=== PATIENT | male | born 1955 | race African-American/Black ===

== ENCOUNTER 2016-05-15 09:39 | Inpatient (IN) | payer MEDICAID, MEDICARE, OTHER ==
[2016-05-15] VITALS (16 sets, daily range): BP systolic 121–222; BP diastolic 61–136; PULSE 62–108; RESP 18–20; TEMP 97.6–98; O2SAT 94–97
[~2016-05-15] VITALS: Ht 170.2 cm; Wt 104.7 kg
[~2016-05-15 09:39] MED LIST: ALLO100T PO; AMLO10TA2 PO; COLC1CAP3 PO; HYDR-3516 PO; LISI40TA PO; PRED10 PO
--- NOTE | 2016-05-15 09:56 | PD ---
Physical Exam Date Seen by Provider: May 15, 2016 Time Seen by Provider: 09:51 Narrative Pt is a 61 year old male presenting to the ED for medication refill. Pt has HTN and does not have a PCP. Pt states he is SOB since this morning. He denies any tobacco use. Pt also reports a cough. He denies any chest pain. Pt appears well. Data Data Last Documented VS Vital Signs Date Time Temp Pulse Resp B/P Pulse Ox O2 Delivery O2 Flow Rate FiO2 05/15/16 17:00 70 18 140/67 96 Room Air 05/15/16 09:57 98.0 Orders Lisinopril (Prinivil) (05/15/16 12:15) Amlodipine (Norvasc) (05/15/16 12:15) Metoprolol Tartrate (Lopressor) (05/15/16 13:45) Nicardipine Inj (Cardene Inj) (05/15/16 16:00) Electrocardiogram (05/15/16 15:48) Basic Metabolic Panel (Bmp) (05/15/16 15:48) Ckmb (Isoenzyme) Profile (05/15/16 15:48) Complete Blood Count With Diff (05/15/16 15:48) Magnesium (Mg) (05/15/16 15:48) Prothrombin Time / Inr (Pt) (05/15/16 15:48) Act Partial Throm Time (Ptt) (05/15/16 15:48) Troponin I (05/15/16 15:48) Chest, Single Ap (05/15/16 15:48) Ecg Monitoring (05/15/16 15:48) Bilateral Bp Monitoring (05/15/16 15:48) Iv Access Insert/Monitor (05/15/16 15:48) Oxygen Administration (05/15/16 15:48) Sodium Chloride 0.9% Flush (Ns Flush) (05/15/16 16:00) Oximetry (05/15/16 15:48) CKMB (05/15/16 15:57) CKMB% (05/15/16 15:57) Admit To Inpatient (05/15/16 ) Vital Signs (Adult) Q4H (05/15/16 16:49) Vital Signs (Adult) Q1H (05/15/16 16:49) Activity Bed Rest With Brp (05/15/16 16:49) Telecom Network Manager / Telemetry YANDY.Q8H (05/15/16 16:49) Intake + Output YANDY.QSHIFT (05/15/16 16:49) Diet Heart Healthy (05/15/16 Dinner) Sodium Chloride 0.9% Flush (Ns Flush) (05/15/16 17:00) Sodium Chloride 0.9% Flush (Ns Flush) (05/15/16 21:00) Labetalol Inj (Trandate Inj) (05/15/16 17:00) Hydralazine Inj (Apresoline Inj) (05/15/16 17:00) Basic Metabolic Panel (Bmp) (05/16/16 06:00) Complete Blood Count With Diff (05/16/16 06:00) Resp Oxygen Tyler C Titrat 1-4 L (05/15/16 ) Inpatient Certification (05/15/16 ) Amlodipine (Norvasc) (05/16/16 09:00) Lisinopril (Prinivil) (05/16/16 09:00) Admit Order (Ed Use Only) (05/15/16 17:00) Labs Laboratory Tests Test 05/15/16 15:57 White Blood Count 9.0 TH/MM3 Red Blood Count 4.77 MIL/MM3 Hemoglobin 13.3 GM/DL Hematocrit 38.8 % Mean Corpuscular Volume 81.3 FL Mean Corpuscular Hemoglobin 28.0 PG Mean Corpuscular Hemoglobin 34.4 % Concent Red Cell Distribution Width 17.1 % Platelet Count 334 TH/MM3 Mean Platelet Volume 7.2 FL Neutrophils (%) (Auto) 61.2 % Lymphocytes (%) (Auto) 28.4 % Monocytes (%) (Auto) 8.0 % Eosinophils (%) (Auto) 1.6 % Basophils (%) (Auto) 0.8 % Neutrophils # (Auto) 5.5 TH/MM3 Lymphocytes # (Auto) 2.6 TH/MM3 Monocytes # (Auto) 0.7 TH/MM3 Eosinophils # (Auto) 0.1 TH/MM3 Basophils # (Auto) 0.1 TH/MM3 CBC Comment DIFF FINAL Differential Comment Prothrombin Time 10.8 SEC Prothromb Time International 1.0 RATIO Ratio Activated Partial 26.0 SEC Thromboplast Time Sodium Level 139 MEQ/L Potassium Level 3.4 MEQ/L Chloride Level 104 MEQ/L Carbon Dioxide Level 27.4 MEQ/L Anion Gap 8 MEQ/L Blood Urea Nitrogen 12 MG/DL Creatinine 1.16 MG/DL Estimat Glomerular Filtration 78 ML/MIN Rate Random Glucose 88 MG/DL Calcium Level 9.1 MG/DL Magnesium Level 2.1 MG/DL Total Creatine Kinase 280 U/L Creatine Kinase MB 1.3 NG/ML Troponin I LESS THAN 0.02 NG/ML MDM Supervised Visit with ASHLEY: No Scripts Amlodipine 10 Mg Tab10 Mg PO DAILY #30 TAB Ref 0 Prov:Mcihelle Lee MD 05/15/16 Lisinopril 40 Mg Tab40 Mg PO DAILY #30 TAB Ref 0 Prov:Michelle Lee MD 05/15/16 Val Parikh May 15, 2016 09:56
[2016-05-15] MEDS ORDERED: LISINOPRIL 20 MG TAB PO ONE (12:15)
[2016-05-15] MEDS ORDERED: LISI40TA PO (13:12)
[2016-05-15] MEDS ORDERED: AMLO10TA2 PO (13:12)
--- NOTE | 2016-05-15 13:12 | PD ---
HPI Chief Complaint: Respiratory Symptoms Time Seen by Provider: 11:14 Travel History International Travel<30 days: No Contact w/Intl Traveler<30days: No Traveled to known affect area: No History of Present Illness HPI 61-year-old male came to the emergency room for shortness of breath and elevated blood pressure for not taking his blood pressure medication since he ran out of all of them. His blood pressure in the ER was 190s to 200 systolic. Patient denies any chest pain, headache or blurred vision. He does not have a primary care and the medication was prescribed to him by Dr. Perez. His is here with him. Patient says that he took his medication last night but skipped 2 days before that since he was running out of them. [facility] Past Medical History Narrative Medical List of his past medical, surgical, social and family history was reviewed from the nursing note. Heart Rhythm Problems: No Cardiac Catheterization: No Cardiovascular Problems: No High Cholesterol: No Congestive Heart Failure: No Diabetes: No Gout: Yes Hypertension: Yes Past Surgical History Coronary Artery Bypass Graft: No Social History Alcohol Use: Yes (daily/4 pack ) Tobacco Use: No Substance Use: Yes (marijuana ) Allergies-Medications (Allergen,Severity, Reaction): Coded Allergies: Iodine (Verified Allergy, Unknown, 05/15/16) Shrimp (Verified Allergy, Unknown, 05/15/16) Comments List of his allergies reviewed from the nursing note. Reported Meds & Prescriptions Reported Meds & Active Scripts Active Narrative Medication List of his home medications reviewed from the nursing note. Review of Systems Except as stated in HPI: all other systems reviewed are Neg Physical Exam Narrative GENERAL: Awake, alert, no obvious distress SKIN: Focused skin assessment warm/dry. HEAD: Atraumatic. Normocephalic. EYES: Pupils equal and round. No scleral icterus. No injection or drainage. ENT: No nasal bleeding or discharge. Mucous membranes pink and moist. NECK: Trachea midline. No JVD. CARDIOVASCULAR: Regular rate and rhythm. No murmur appreciated. RESPIRATORY: No accessory muscle use. Clear to auscultation. Breath sounds equal bilaterally. GASTROINTESTINAL: Abdomen soft, non-tender, nondistended. Hepatic and splenic margins not palpable. MUSCULOSKELETAL: No obvious deformities. No clubbing. No cyanosis. No edema. NEUROLOGICAL: Awake and alert. No obvious cranial nerve deficits. Motor grossly within normal limits. Normal speech. PSYCHIATRIC: Appropriate mood and affect; insight and judgment normal. Data Data Last Documented VS Vital Signs Date Time Temp Pulse Resp B/P Pulse Ox O2 Delivery O2 Flow Rate FiO2 05/15/16 17:00 70 18 140/67 96 Room Air 05/15/16 09:57 98.0 Orders Lisinopril (Prinivil) (05/15/16 12:15) Amlodipine (Norvasc) (05/15/16 12:15) Metoprolol Tartrate (Lopressor) (05/15/16 13:45) Nicardipine Inj (Cardene Inj) (05/15/16 16:00) Electrocardiogram (05/15/16 15:48) Basic Metabolic Panel (Bmp) (05/15/16 15:48) Ckmb (Isoenzyme) Profile (05/15/16 15:48) Complete Blood Count With Diff (05/15/16 15:48) Magnesium (Mg) (05/15/16 15:48) Prothrombin Time / Inr (Pt) (05/15/16 15:48) Act Partial Throm Time (Ptt) (05/15/16 15:48) Troponin I (05/15/16 15:48) Chest, Single Ap (05/15/16 15:48) Ecg Monitoring (05/15/16 15:48) Bilateral Bp Monitoring (05/15/16 15:48) Iv Access Insert/Monitor (05/15/16 15:48) Oxygen Administration (05/15/16 15:48) Sodium Chloride 0.9% Flush (Ns Flush) (05/15/16 16:00) Oximetry (05/15/16 15:48) CKMB (05/15/16 15:57) CKMB% (05/15/16 15:57) Admit To Inpatient (05/15/16 ) Vital Signs (Adult) Q4H (05/15/16 16:49) Vital Signs (Adult) Q1H (05/15/16 16:49) Activity Bed Rest With Brp (05/15/16 16:49) Hydroponics Worker / Telemetry YANDY.Q8H (05/15/16 16:49) Intake + Output YANDY.QSHIFT (05/15/16 16:49) Diet Heart Healthy (05/15/16 Dinner) Sodium Chloride 0.9% Flush (Ns Flush) (05/15/16 17:00) Sodium Chloride 0.9% Flush (Ns Flush) (05/15/16 21:00) Labetalol Inj (Trandate Inj) (05/15/16 17:00) Hydralazine Inj (Apresoline Inj) (05/15/16 17:00) Basic Metabolic Panel (Bmp) (05/16/16 06:00) Complete Blood Count With Diff (05/16/16 06:00) Resp Oxygen Tyler C Titrat 1-4 L (05/15/16 ) Inpatient Certification (05/15/16 ) Amlodipine (Norvasc) (05/16/16 09:00) Lisinopril (Prinivil) (05/16/16 09:00) Admit Order (Ed Use Only) (05/15/16 17:00) Labs Laboratory Tests Test 05/15/16 15:57 White Blood Count 9.0 TH/MM3 Red Blood Count 4.77 MIL/MM3 Hemoglobin 13.3 GM/DL Hematocrit 38.8 % Mean Corpuscular Volume 81.3 FL Mean Corpuscular Hemoglobin 28.0 PG Mean Corpuscular Hemoglobin 34.4 % Concent Red Cell Distribution Width 17.1 % Platelet Count 334 TH/MM3 Mean Platelet Volume 7.2 FL Neutrophils (%) (Auto) 61.2 % Lymphocytes (%) (Auto) 28.4 % Monocytes (%) (Auto) 8.0 % Eosinophils (%) (Auto) 1.6 % Basophils (%) (Auto) 0.8 % Neutrophils # (Auto) 5.5 TH/MM3 Lymphocytes # (Auto) 2.6 TH/MM3 Monocytes # (Auto) 0.7 TH/MM3 Eosinophils # (Auto) 0.1 TH/MM3 Basophils # (Auto) 0.1 TH/MM3 CBC Comment DIFF FINAL Differential Comment Prothrombin Time 10.8 SEC Prothromb Time International 1.0 RATIO Ratio Activated Partial 26.0 SEC Thromboplast Time Sodium Level 139 MEQ/L Potassium Level 3.4 MEQ/L Chloride Level 104 MEQ/L Carbon Dioxide Level 27.4 MEQ/L Anion Gap 8 MEQ/L Blood Urea Nitrogen 12 MG/DL Creatinine 1.16 MG/DL Estimat Glomerular Filtration 78 ML/MIN Rate Random Glucose 88 MG/DL Calcium Level 9.1 MG/DL Magnesium Level 2.1 MG/DL Total Creatine Kinase 280 U/L Creatine Kinase MB 1.3 NG/ML Troponin I LESS THAN 0.02 NG/ML MDM Medical Decision Making Medical Screen Exam Complete: Yes Emergency Medical Condition: Yes Medical Record Reviewed: Yes Interpretation(s) Twelve-lead EKG was reviewed by me. Normal sinus rhythm, normal axis, LVH. Heart rate of 62 bpm. Differential Diagnosis Essential hypertension, hypertensive urgency Narrative Course 1:17 PM patient was given his daily dose of his blood pressure medication which includes amlodipine and lisinopril. I just reassessed him patient said that he received his medications about 30 minutes ago. The recycle blood pressure was still high. I will give it another 20 minutes and recycle. If it still high I will add Lopressor. 3:31 PM patient was given 50 mg of by mouth Lopressor because of persistent hypotension in spite of his other medications. Awaiting for a minimal blood pressure. The heart rate has come down to 67 from the 80s. 4:32 PM blood pressure persistently stayed above 200 systolic. In fact the last blood pressure was 222 systolic. I started him on Cardene drip. I decided to admit him. Chest x-ray and blood test were ordered which were within normal limits. Awaiting for the hospitalist to call back. Critical Care Narrative Aggregate critical care time was 60 minutes. Time to perform other separately billable procedures was not included in the critical care time. My time did not include minutes spent treating any other patients simultaneously or on activities that did not directly contribute to the patient's treatment. The services I provided to this patient were to treat and/or prevent clinically significant deterioration that could result in: Malignant hypertension, Cardene drip I provided critical care services requiring my management, as noted below: Chart data review, documentation time, medication orders and management, vital sign assessments/reviewing monitor data, ordering and reviewing lab tests, ordering and interpreting/reviewing x-rays and diagnostic studies, care of the patient and discussion of the patient with the admitting physicians. Procedures EKG Prior to Arrival: No Diagnosis Primary Impression: Malignant hypertension Additional Impression: Essential hypertension Admitting Information Admitting Physician Requests: Admit Scripts Naproxen (Naprosyn)250 Mg Bmp765 Mg PO Q12HR #30 TAB Prov:Mita Tristan MD R3 05/17/16 Lisinopril 20 Mg Tab40 Mg PO DAILY #30 TAB Prov:Mita Tristan MD R3 05/17/16 Hydrochlorothiazide 12.5 Mg Cap12.5 Mg PO BID #60 CAP Prov:Mita Tristan MD R3 05/17/16 Amlodipine (Norvasc)10 Mg Tab10 Mg PO DAILY #30 TAB Prov:Mita Tristan MD R3 05/17/16 Michelle Lee MD May 15, 2016 13:12
[2016-05-15] MEDS ORDERED: METOPROLOL TARTRATE 50 MG TAB PO ONE (13:45)
[2016-05-15] MEDS ORDERED: SODIUM CHLORIDE 0.9% FLUSH 10 ML FLUSH IVF PRN (16:00)
[2016-05-15 16:21] LABS: AUTOMATED NEUTROPHIL # 5.5 TH/MM3 (1.8-7.7); BASOPHIL # 0.1 TH/MM3 (0-0.2); BASOPHIL % 0.8 % (0.0-2.0); EOSINOPHIL # 0.1 TH/MM3 (0-0.4); EOSINOPHIL % 1.6 % (0.0-4.0); HEMATOCRIT 38.8 % (39.0-51.0); HEMO FLAGS DIFF FINAL; LYMPH % 28.4 % (9.0-44.0); LYMPHOCYTE # 2.6 TH/MM3 (1.0-4.8); MEAN CELL VOLUME 81.3 FL (80.0-100.0); MEAN CORPUSCULAR HGB CONC 34.4 % (32.0-36.0); NEUT % 61.2 % (16.0-70.0); PLATELET COUNT 334 TH/MM3 (150-450); RED BLOOD COUNT 4.77 MIL/MM3 (4.50-5.90); RED CELL DISTRIBUTION WIDTH 17.1 % (11.6-17.2)
--- NOTE | 2016-05-15 16:27 | RADRPT ---
EXAM DATE/TIME: 05/15/2016 15:48 [facility] COMPARISON: CHEST SINGLE AP, October 15, 2015, 8:20. INDICATIONS : Short of breath and chest pain at arrival. MEDICAL HISTORY : high blood pressure. SURGICAL HISTORY : None. ENCOUNTER: Initial ACUITY: 1 day PAIN SCORE: 0/10 LOCATION: Bilateral chest FINDINGS: A single view of the chest demonstrates the lungs to be symmetrically aerated without evidence of mas s, infiltrate or effusion. The cardiomediastinal contours are unremarkable. Osseous structures are intact. CONCLUSION: No acute disease. José Miguel Short MD FACR on May 15, 2016 at 16:25 Board Certified Radiologist. This report was verified electronically.
[2016-05-15 16:30] LABS: PROTHROMBIN TIME - PATIENT 10.8 SEC (9.8-11.6)
[2016-05-15] MEDS: niCARdipine INJ 25 MG in SODIUM CHLOR 0.9% 250 ML INJ 250 ML IV SCH ×2 (16:32→21:38)
[2016-05-15 16:42] LABS: ANION GAP 8 MEQ/L (5-15); BICARBONATE 27.4 MEQ/L (21.0-32.0); BLOOD UREA NITROGEN 12 MG/DL (7-18); CHLORIDE 104 MEQ/L (98-107); GLOMERULAR FILTRATION RATE 78 ML/MIN (>89); MAGNESIUM 2.1 MG/DL (1.5-2.5); POTASSIUM 3.4 MEQ/L (3.5-5.1); SODIUM (NA) 139 MEQ/L (136-145)
[2016-05-15 16:46] LABS: CREATINE KINASE 280 U/L (39-308)
[2016-05-15 16:58] LABS: CKMB 1.3 NG/ML (0.5-3.6)
[2016-05-15] MEDS ORDERED: hydrALAZINE HCL 20 MG/ML VIAL IV PRN (17:00)
[2016-05-15] MEDS ORDERED: LABETALOL HCL 100 MG/20 ML VIAL IV PRN (17:00)
[2016-05-15] MEDS ORDERED: SODIUM CHLORIDE 0.9% FLUSH 10 ML FLUSH IV FLUSH PRN (17:00)
--- NOTE | 2016-05-15 18:11 | HHI.HP ---
cc: Beckie Gan MD [facility] No Primary Care Physician Admission Diagnosis malignant hypertension, hypertensive emergency Diagnoses: Chief Complaint: Hypertensive urgency Travel History International Travel<30 Days: No Contact w/Intl Traveler <30 Da: No Traveled to Known Affected Are: No History of Present Illness Patient is a 61-year-old male with primary medical history of hypertension, gout who came in due to hospital for elevated blood pressure. Patient states that he has been religiously taking his blood pressure medication amlodipine, lisinopril and he ran out of refill but [facility] was able to give him 3 day extra emergency supply. States he did not skip or missed his dose but continues to have an elevated BP. In the ED, patient was given his dose of amlodipine and lisinopril but unable to get his blood pressure controlled. Patient was given metoprolol 50 mg but continues to have persistent hypertension that they started him on Cardene drip at around 4:30 PM. When patient was seen, he continues to be on Cardene drip at 30 mg an hour , BP on the monitor is 121/61 with heart rate of 78. Decreased Cardene drip to 10 mg an hour, notified nursing to wean him off and titrate the Cardene drip. Denies pain and discomfort. Denies SOB/ dyspnea. Denies chest pain, palpitations, headaches, dizziness, diaphoresis. Denies fevers, chills, n/v/d. Labs reviewed. Unremarkable CBC. Troponin less than 0.02. Slight hypokalemia 3.4, EGFR 78. Chest x-ray no acute disease Review of Systems Except as stated in HPI: all other systems reviewed are Neg Past Family Social History Past Medical History Gout Hypertension Past Surgical History None Reported Medications Lisinopril 40 mg daily Amlodipine 10 mg daily Allergies: Coded Allergies: Iodine (Verified Allergy, Unknown, 05/15/16) Shrimp (Verified Allergy, Unknown, 05/15/16) Active Ordered Medications Current Medications Medications (Trade) Dose Ordered Sig/Deepa Route Start Time Stop Time Status Last Admin (Cardene Inj/NS 250 ml Inj) 260 ml @ 0 mls/hr TITRATE IV 05/15/16 16:00 05/15/16 16:32 (NS Flush) 2 ml UNSCH PRN IV FLUSH 05/15/16 17:00 (NS Flush) 2 ml BID IV FLUSH 05/15/16 21:00 (Trandate Inj) 10 mg Q6H PRN IV 05/15/16 17:00 (Apresoline Inj) 10 mg Q6H PRN IV 05/15/16 17:00 (Norvasc) 10 mg DAILY PO 05/16/16 09:00 (Prinivil) 40 mg DAILY PO 05/16/16 09:00 Family History Hypertension runs in the family, mother also has asthma Social History Reports alcohol use not daily but often, he finishes 4 packs of beer in a week Denies tobacco use Marijuana use Physical Exam Vital Signs Vital Signs Date Time Temp Pulse Resp B/P Pulse Ox O2 Delivery O2 Flow Rate FiO2 05/15/16 15:59 75 18 222/136 97 Room Air 05/15/16 15:58 97 Room Air 05/15/16 15:58 97 Room Air 05/15/16 14:00 84 18 196/94 96 Room Air 05/15/16 12:11 86 18 188/109 96 Room Air 05/15/16 11:23 85 Room Air 05/15/16 09:57 98.0 108 20 217/130 94 Room Air Physical Exam GENERAL: This is a well-nourished, well-developed patient, in no apparent distress. SKIN: No rashes, ecchymoses or lesions. Cool and dry. HEAD: Atraumatic. Normocephalic. No temporal or scalp tenderness. EYES: Pupils equal round and reactive. Extraocular motions intact. No scleral icterus. No injection or drainage. ENT: Nose without bleeding. Throat without erythema. Uvula midline. Airway patent. NECK: Trachea midline. No JVD or lymphadenopathy. Supple. CARDIOVASCULAR: Regular rate and rhythm without murmurs, gallops, or rubs. RESPIRATORY: Clear to auscultation. Breath sounds equal bilaterally. No wheezes , rales, or rhonchi. GASTROINTESTINAL: Abdomen soft, non-tender, nondistended. I'll sounds active 4. No guarding. MUSCULOSKELETAL: Extremities without clubbing, cyanosis, or edema. No joint tenderness, effusion, or edema noted. NEUROLOGICAL: Awake and alert. Oriented to time, place, person. Motor and sensory grossly within normal limit. Normal speech. Laboratory Laboratory Tests Test 05/15/16 15:57 White Blood Count 9.0 Red Blood Count 4.77 Hemoglobin 13.3 Hematocrit 38.8 Mean Corpuscular Volume 81.3 Mean Corpuscular Hemoglobin 28.0 Mean Corpuscular Hemoglobin 34.4 Concent Red Cell Distribution Width 17.1 Platelet Count 334 Mean Platelet Volume 7.2 Neutrophils (%) (Auto) 61.2 Lymphocytes (%) (Auto) 28.4 Monocytes (%) (Auto) 8.0 Eosinophils (%) (Auto) 1.6 Basophils (%) (Auto) 0.8 Neutrophils # (Auto) 5.5 Lymphocytes # (Auto) 2.6 Monocytes # (Auto) 0.7 Eosinophils # (Auto) 0.1 Basophils # (Auto) 0.1 CBC Comment DIFF FINAL Differential Comment Prothrombin Time 10.8 Prothromb Time International 1.0 Ratio Activated Partial 26.0 Thromboplast Time Sodium Level 139 Potassium Level 3.4 Chloride Level 104 Carbon Dioxide Level 27.4 Anion Gap 8 Blood Urea Nitrogen 12 Creatinine 1.16 Estimat Glomerular Filtration 78 Rate Random Glucose 88 Calcium Level 9.1 Magnesium Level 2.1 Total Creatine Kinase 280 Creatine Kinase MB 1.3 Troponin I LESS THAN 0.02 Result Diagram: 05/15/16 1557 05/15/16 1557 Imaging Last Impressions Chest X-Ray 05/15/16 1548 Signed Impressions: Service Date/Time: Sunday, May 15, 2016 15:48 - CONCLUSION: No acute disease. José Miguel Short MD FACR Assessment and Plan Problem List: (1) Hypertensive urgency ICD Code: I16.0 Status: Acute Assessment and Plan Patient is a 61-year-old male with primary medical history of hypertension, gout who came in due to hospital for elevated blood pressure. Patient states that he has been religiously taking his blood pressure medication amlodipine, lisinopril and he ran out of refill but [facility] was able to give him 3 day extra emergency supply. States he did not skip or missed his dose but continues to have an elevated BP. In the ED, patient was given his dose of amlodipine and lisinopril but unable to get his blood pressure controlled. Patient was given metoprolol 50 mg but continues to have persistent hypertension that they started him on Cardene drip. Hypertensive urgency - On Cardene drip, wean off blood pressure 121/61, heart rate 78 on exam - by mouth medication lisinopril 40 mg, amlodipine 10 mg tomorrow - EKG reviewed by me normal sinus rhythm, no acute ST changes. Troponin less than 0.02 - Telemetry. - Labetalol 10 mg every 6 hours when necessary, hydralazine 10 mg every 6 hours when necessary - Recheck labs tomorrow. - Patient occasionally takes ibuprofen but states it's not daily. Discussed risk factors taking ibuprofen daily with hypertension. Gout - No flareups - Not on medications Hypokalemia - KCl replacement. - Check BMP tomorrow Labs reviewed and compared to previous labs. Unremarkable CBC. Slight hypokalemia 3.4. DVT prop SCDs, patient ambulatory Written by Pelon Moreno, acting as scribe for Dr. Bowser on 05/15/16 at 18:08. All or portions of this note were transcribed by MARY Wise . I, Dr. Nikolay Bowser personally performed the history, physical exam, and medical decision making; and confirmed the accuracy of the information in the transcribed note. Authenticated by Dr. Nikolay Bowser on 05/15/16 at 19:45. Code Status Full code Discussed Condition With Patient, , nursing, ED attending Dr. Lee Physician Certification 2 Midnight Certification Type: Admission for Inpatient Services Order for Inpatient Services The services are ordered in accordance with Medicare regulations or non- Medicare payer requirements, as applicable. In the case of services not specified as inpatient-only, they are appropriately provided as inpatient services in accordance with the 2-midnight benchmark. Estimated LOS (days): 2 days is the estimated time the patient will need to remain in the hospital, assuming treatment plan goals are met and no additional complications. Post-Hospital Plan: Home Pelon Sen May 15, 2016 18:11 Tico Bowser DO May 15, 2016 19:45
[2016-05-15] MEDS ORDERED: hydrALAZINE HCL 20 MG/ML VIAL IV PUSH PRN (18:15)
[2016-05-15] MEDS ORDERED: ACETAMINOPHEN/HYDROcodone 325 MG/5 MG TAB PO PRN (21:15)
[2016-05-15] MEDS ORDERED: LABETALOL HCL 100 MG/20 ML VIAL IV PUSH ONE (21:15)
[2016-05-15] MEDS: SODIUM CHLORIDE 0.9% FLUSH 10 ML FLUSH IV FLUSH SCH (21:31)
[2016-05-15] MEDS: ACETAMINOPHEN/HYDROcodone 325 MG/10 MG TAB PO PRN (21:32)
[2016-05-16] VITALS (8 sets, daily range): BP systolic 138–180; BP diastolic 80–90; PULSE 64–103; RESP 16–21; TEMP 97.7–98.4; O2SAT 94–98
[2016-05-16] MEDS: ACETAMINOPHEN/HYDROcodone 325 MG/10 MG TAB PO PRN (07:30)
[2016-05-16] MEDS: SODIUM CHLORIDE 0.9% FLUSH 10 ML FLUSH IV FLUSH SCH ×2 (07:42→21:00)
[2016-05-16] MEDS: LISINOPRIL 20 MG TAB PO SCH (07:53)
[2016-05-16 09:21] LABS: AUTOMATED NEUTROPHIL # 7.9 TH/MM3 (1.8-7.7); BASOPHIL # 0.1 TH/MM3 (0-0.2); BASOPHIL % 0.6 % (0.0-2.0); EOSINOPHIL # 0.2 TH/MM3 (0-0.4); EOSINOPHIL % 1.6 % (0.0-4.0); HEMATOCRIT 38.1 % (39.0-51.0); HEMO FLAGS DIFF FINAL; LYMPH % 19.7 % (9.0-44.0); LYMPHOCYTE # 2.2 TH/MM3 (1.0-4.8); MEAN CELL VOLUME 81.8 FL (80.0-100.0); MEAN CORPUSCULAR HEMOGLOBIN 27.1 PG (27.0-34.0); MEAN CORPUSCULAR HGB CONC 33.1 % (32.0-36.0); MONO % 7.6 % (0.0-8.0); NEUT % 70.5 % (16.0-70.0); PLATELET COUNT 318 TH/MM3 (150-450); RED BLOOD COUNT 4.65 MIL/MM3 (4.50-5.90); RED CELL DISTRIBUTION WIDTH 17.4 % (11.6-17.2); WHITE BLOOD COUNT 11.2 TH/MM3 (4.0-11.0)
[2016-05-16 11:18] LABS: BICARBONATE 22.7 MEQ/L (21.0-32.0); POTASSIUM 3.3 MEQ/L (3.5-5.1)
--- NOTE | 2016-05-16 11:59 | HHI.PR ---
Subjective Remarks 61yo male patient seen and examined this am. Patients blood pressure controlled overnight and this am, but now currently elevated. He denies CP or SOB. Recently disabled, now has insurance and needs to get a doctor. Wants to know if he can come to my clinic. Is requesting to take a shower. Family is at his bedside. Objective Vital Signs Date Time Temp Pulse Resp B/P Pulse Ox O2 Delivery O2 Flow Rate FiO2 05/16/16 09:32 98 21 05/16/16 08:00 98.0 64 18 180/90 96 05/16/16 04:00 97.9 66 16 138/88 94 05/15/16 23:30 Room Air 05/15/16 23:00 74 05/15/16 22:29 18 05/15/16 22:25 97.6 70 18 148/90 94 05/15/16 21:39 72 18 172/90 05/15/16 20:54 75 18 182/91 97 Room Air 05/15/16 20:02 66 18 194/104 97 Room Air 05/15/16 19:26 65 18 189/113 05/15/16 19:25 66 18 181/107 97 Room Air 05/15/16 18:00 70 18 132/66 96 Room Air 05/15/16 17:30 74 18 121/61 96 Room Air 05/15/16 17:00 70 18 140/67 96 Room Air 05/15/16 16:30 62 18 164/93 96 Room Air 05/15/16 15:59 75 18 222/136 97 Room Air 05/15/16 15:58 97 Room Air 05/15/16 15:58 97 Room Air 05/15/16 14:00 84 18 196/94 96 Room Air 05/15/16 12:11 86 18 188/109 96 Room Air I/O 05/15/16 05/15/16 05/15/16 05/16/16 05/16/16 05/16/16 07:00 15:00 23:00 07:00 15:00 23:00 Intake Total 0 ml Balance 0 ml Intake Oral 0 ml # Voids 1 # Bowel Movements 0 Result Diagram: 05/16/16 0822 05/16/16 0822 Imaging Last Impressions Chest X-Ray 05/15/16 1548 Signed Impressions: Service Date/Time: Sunday, May 15, 2016 15:48 - CONCLUSION: No acute disease. José Miguel Short MD FACR Other Results GENERAL: SKIN: Warm and dry. HEAD: Normocephalic. EYES: No scleral icterus. No injection or drainage. NECK: Supple, trachea midline. No JVD or lymphadenopathy. CARDIOVASCULAR: Regular rate and rhythm without murmurs, gallops, or rubs. RESPIRATORY: Breath sounds equal bilaterally. No accessory muscle use. GASTROINTESTINAL: Abdomen soft, non-tender, nondistended. MUSCULOSKELETAL: No cyanosis, or edema. BACK: Nontender without obvious deformity. No CVA tenderness. A/P Problem List: (1) Hypertension ICD Code: I10 (2) Gout of right hand ICD Code: M10.9 (3) Hypertensive urgency ICD Code: I16.0 Assessment and Plan 61 yo male with medical hx of HTN and gout presented to ED with hypertensive urgency, no signs of end organ damage. 1. HTN: s/p cardene drip & metoprolol. Lisinopril 40 mg and amlodipine 10 mg resumed today. Labetolol 10 mg & hydralazine 10 mg prn. EKG unremarkable on admission, troponin negative. Likely patient will not be controlled on just PO lisinopril & amlodipine. Will start the patient on HCTZ 12. 5 mg daily. Anticipate patient can go home on these three medications tomorrow if BP in acceptable rang and be further titrated as an outpatient. 2. Gout: stable not currently on any medications for this. Having some right knee pain. Started Naproxen. FEN HLIV K 3.3, repleted Regular diet as tolerated Needs to follow up with a PCP Discharge Planning D/C tomorrow pending better control of BP. Mita Tristan MD R3 May 16, 2016 11:58
[2016-05-16] MEDS ORDERED: POTASSIUM CHLORIDE 10 MEQ CONTROLLED RELEASE TAB PO ONE (12:00)
[2016-05-16] MEDS: HYDROCHLOROTHIAZIDE 12.5 MG CAP PO SCH (12:00)
[2016-05-16] MEDS: NAPROXEN 250 MG TAB PO SCH ×2 (13:00→22:10)
[2016-05-17 01:55] VITALS: BP 168/91; PULSE 74; RESP 18; TEMP 98.4; O2SAT 94
[2016-05-17 05:19] VITALS: BP 157/95; PULSE 86; RESP 21; TEMP 97.3; O2SAT 98
[2016-05-17 08:00] VITALS: BP 175/98; PULSE 80; RESP 16; TEMP 98.4; O2SAT 93
[2016-05-17] MEDS: SODIUM CHLORIDE 0.9% FLUSH 10 ML FLUSH IV FLUSH SCH (08:29)
[2016-05-17] MEDS: LISINOPRIL 20 MG TAB PO SCH (08:29)
[2016-05-17] MEDS: NAPROXEN 250 MG TAB PO SCH (08:29)
[2016-05-17] MEDS: HYDROCHLOROTHIAZIDE 12.5 MG CAP PO SCH (08:29)
--- NOTE | 2016-05-17 11:14 | HHI.PR ---
Subjective Remarks 61yo male patient seen and examined this am. BP overall well controlled, with one elevated this am. He denies CP or SOB. Recently disabled, now has insurance and needs to get a doctor. Family is at his bedside. Slept well, tolerating diet, wants to go home. Objective Vital Signs Date Time Temp Pulse Resp B/P Pulse Ox O2 Delivery O2 Flow Rate FiO2 05/17/16 08:00 98.4 80 16 175/98 93 05/17/16 08:00 98 Room Air 05/17/16 05:19 97.3 86 21 157/95 98 05/17/16 01:55 98.4 74 18 168/91 94 05/16/16 21:54 98.4 103 21 139/80 95 05/16/16 21:00 Room Air 05/16/16 18:07 97 21 05/16/16 16:00 97.7 77 18 153/90 97 05/16/16 12:00 98.1 78 18 150/90 95 I/O 05/16/16 05/16/16 05/16/16 05/17/16 05/17/16 05/17/16 07:00 15:00 23:00 07:00 15:00 23:00 Intake Total 0 ml 480 ml 960 ml Output Total 800 ml Balance 0 ml -320 ml 960 ml Intake Oral 0 ml 480 ml 960 ml Output Urine Total 800 ml # Voids 1 3 # Bowel Movements 0 0 1 Result Diagram: 05/16/16 0822 05/16/16 0822 Imaging Last Impressions Chest X-Ray 05/15/16 1548 Signed Impressions: Service Date/Time: Sunday, May 15, 2016 15:48 - CONCLUSION: No acute disease. José Miguel Short MD FACR Objective Remarks GENERAL: well appearing NAD SKIN: Warm and dry. HEAD: Normocephalic. EYES: No scleral icterus. No injection or drainage. NECK: Supple, trachea midline. No JVD or lymphadenopathy. CARDIOVASCULAR: Regular rate and rhythm without murmurs, gallops, or rubs. RESPIRATORY: Breath sounds equal bilaterally. No accessory muscle use. GASTROINTESTINAL: Abdomen soft, non-tender, nondistended. MUSCULOSKELETAL: Knees slightly swollen bilat. NO calf tenderness. BACK: Nontender without obvious deformity. No CVA tenderness. A/P Problem List: (1) Hypertension ICD Code: I10 (2) Gout of right hand ICD Code: M10.9 (3) Hypertensive urgency ICD Code: I16.0 Assessment and Plan 61 yo male with medical hx of HTN and gout presented to ED with hypertensive urgency, no signs of end organ damage. 1. HTN: s/p cardene drip & metoprolol. Lisinopril 40 mg and amlodipine 10 mg resumed today. Labetolol 10 mg & hydralazine 10 mg prn. EKG unremarkable on admission, troponin negative. Likely patient will not be controlled on just PO lisinopril & amlodipine. HCTZ 12. 5 mg daily started yesterday, will increase to BID. Patient can go home on these three and can be further titrated as an outpatient. 2. Gout: stable not currently on any medications for this. Having some right knee pain. Started Naproxen yesterday. FEN HLIV Regular diet as tolerated Will see me in clinic this week. Discharge Planning D/C this afternoon. Will allow him to follow up in my clinic. Number given. Plan discussed with patient, his family, and the patients nurse. Mita Tristan MD R3 May 17, 2016 11:14
[2016-05-17] MEDS ORDERED: NAPR250T57 PO (11:17)
[2016-05-17] MEDS ORDERED: AMLO10 PO (11:17)
[2016-05-17] MEDS ORDERED: HYDR12.57 PO (11:17)
[2016-05-17] MEDS ORDERED: LISI-515 PO (11:17)
[2016-05-17 12:00] VITALS: BP 156/81; PULSE 95; RESP 20; TEMP 98.1; O2SAT 96
[2016-05-17] MEDS ORDERED: HYDROCHLOROTHIAZIDE 12.5 MG CAP PO SCH (13:00)
--- NOTE | 2016-05-17 21:32 | EKG ---
Date Performed: 05/15/2016 Time Performed: 16:16:34 PTAGE: 61 years EKG: Sinus rhythm VOLTAGE CRITERIA FOR LVH NONSPECIFIC T-WAVE ABNORMALITY ABNORMAL ECG PREVIOUS TRACING : 10/15/2015 14.00 DOCTOR: Karime Izquierdo Interpretating Date/Time 05/17/2016 21:28:47
[2016-05-22] MEDS ORDERED: LISI40TA PO (15:07)
[2016-05-22] MEDS ORDERED: NAPR250T57 PO (15:07)
[2016-05-22] MEDS ORDERED: HYDR12.57 PO (15:07)
[2016-05-22] MEDS ORDERED: AMLO10 PO (15:07)
== END 2016-05-17 15:40 | disposition home or self-care (01) | DRG 305 ==
LOC: NEPC 09:39 → NEDA 17:02 → N04B 22:20
PROVIDERS: ADMIT Family Medicine; ATTEND Family Medicine
DX: I16.0 Hypertensive urgency (principal); M10.9 Gout, unspecified; E87.6 Hypokalemia; I10 Essential (primary) hypertension
CPT/HCPCS: 71010; 80048; 82550; 82552; 83735; 84484; 85025; 85610; 85730; 93005; 96365; J0360; J7050